=== PATIENT | female | born 1950 | race Caucasian/White ===

== ENCOUNTER 2021-01-17 10:07 | Emergency (ER) | payer MEDICARE, OTHER ==
[~2021-01-17 10:07] MED LIST: NORCO 5-325 TA1 EACH PO
[2021-01-17 11:38] LABS: HEMOGLOBIN 13.5 gm/dl (12.3-15.3); RED BLOOD COUNT 4.42 M/UL (4.00-5.10)
[2021-01-17 12:00] LABS: BUN/CREATININE RATIO 27 (0-10)
[2021-01-17] MEDS ORDERED: ZESTRIL/PRINIVI10 MG PO (14:35)
== END 2021-01-17 14:47 | disposition home or self-care (01) ==
LOC: ER1 10:07
PROVIDERS: Emergency Medicine
DX: I10 Essential (primary) hypertension (principal); E78.5 Hyperlipidemia, unspecified; E07.9 Disorder of thyroid, unspecified; Z90.710 Acquired absence of both cervix and uterus
CPT/HCPCS: 71045; 80053; 82550; 82553; 83874; 84439; 84443; 84484; 85025; 93005; 96374; 99283; J0360